=== PATIENT | female | born 1945 | race Caucasian/White ===

== ENCOUNTER 2025-01-13 13:02 | Outpatient (AMB) | payer MEDICARE, OTHER, SELFPAY ==
--- OUTSIDE RECORDS SUMMARY | 2025-01-11 11:00 | XMS_ITS | Encounter Summary ---
Author Organization [facility] Address [address] [place] [address] Care Team Providers Care It Service Manager Name Role Phone Louise Rodriguez MD Primary Care Prov ider Reason for Referral * Medications - Closed Specialty Diagnoses / Procedures Referred By Angie ballard Referred To Contact Diagnoses Pain of left lower extremity Johana Boyer PA [address] [place], [place] Phone: tel: fax: Referral ID Status Reason Start Date Expiration Date Visits Re quested Visits Authorized [id number] Closed 1 1 * Consultation (Routine) - Authorized Specialty Diagnoses / Procedures Referred By Angie ballard Referred To Contact Physical Therapy Diagnoses Pain of left lower extremity Johana Boyer PA [address] [place], [place] Phone: tel: fax: Referral ID Status Reason Start Date Expiration Date Visits Requested Visits Authorized [id number] Authorized Specialty Services Required 01/11/2025 01/11/2026 1 1 Reason for Visit * Reason Comments Leg Pain Encounter Details Date Type Department Care Team ([facility] st Contact Info) Description 01/11/2025 11:00 AM EST Office Visit Adult Medicine - [place] [address] [place] [phone] Johana Boyer PA [address] [place] [address] Pain of left lower extremity (Primary Dx); Hypertension, unspecified type Social History Tobacco Use Types Packs/Day Years Used Date Smoking Tobacco: Former Cigarettes 0 Q uit: 02/09/1979 Smokeless Tobacco: Former Alcohol Use Standard Drinks/Week Comments No 0 (1 standard drink = 0.6 oz pur e alcohol) Housing Instability Answer Date Recorde d Are you worried that in the next 2 months you may not have stable housing? No 11/15/2024 Food Access & Nutrition Answer Date Rec orded Do you have access to a vari ety of food including fruits and vegetables? Yes 11/15/2024 Access to Healthcare Answer Date Record ed Within the last 3 months, ho w many times did you visit the emergency department for your medical care? 0 11/15/2024 Health Literacy Answer Date Recorded How often do you need to hav e someone help you when you read instructions, pamphlets, or other written material from your doctor or pharmacy? Never 11/15/2024 Caregiver: How often do you need to have someone help you when you read instructions, pamphlets, or other written material from your doctor or pharmacy? Not on file 11/15/2024 Financial Risk Answer Date Recorded How hard is it for you to pa y for the very basics like food, housing, medical care, and air conditioning / heating? Not very hard 11/15/2024 Transportation Answer Date Recorded Has the lack of transportati on kept you from meetings, work, or from getting things needed for daily living? Not on file 11/15/2024 Has the lack of transportati on kept you from medical appointments or from getting medications? No 11/15/2024 Social Isolation Answer Date Recorded How often do you feel lonely or isolated from th ose around you? Never 11/15/2024 Food Risk Answer Date Recorded Within the past 12 months we worried whether our food would run out before we got money to buy more. Never true 11/15/2024 Within the past 12 months th e food we bought just didn't last and we didn't have money to get more. Never true 11/15/2024 Dependent Care Answer Date Recorded Do you need help finding or paying for care for your loved ones. For example, child neurologist or elderly care for an older adult? No 11/15/2024 Education Answer Date Recorded Do you think completing more education or training, like finishing a GED, going to college, or learning a trade, would be helpful for you? N/A 11/15/2024 Employment and Income Answer Date Recor ded During the last four weeks, have you been actively looking for work? No 11/15/2024 Living Situation Answer Date Recorded What is your living situation? Unrecognized valu e 11/15/2024 Comments No Sex and Gender Information Value Date Recorded Sex Assigned at Not on file Legal Sex Female 11:02 AM EST Gender Identity Not on file Sexual Orientation Not on file documented as of this encounter Last Filed Vital Signs Vital Sign Reading Time Taken Comments Blood Pressure 162/88 01/11/2025 11:24 AM EST Pulse 70 01/11/2025 11:24 AM EST Temperature - - Respiratory Rate - - Oxygen Saturation 99% 01/11/2025 11:24 AM EST Inhaled Oxygen Concentration - - Weight - - Height - - Body Mass Index - - documented in this encounter Ordered Prescriptions Prescription Sig Dispense Quantity Refills Last Filled Start Date End Date traMADoL (ULTRAM) 50 mg tabletIndications:P ain of left lower extremity Take 1 tablet (50 mg total) by mouth every 8 (eight) hours if needed for severe pain. Max Daily Amount: 150 mg 10 tablet 01/11/2025 documented in this encounter Progress Notes * JAYNE Fernandes - 01/11/2025 11:00 AM EST CHIEF COMPLAINT: Leg Pain IDENTIFIER: Amy Acosta is a 80 y.o. old female. HPI: BP Readings from Last 5 Encounters: 01/11/25 (!) 162/88 11/15/24 130/70 05/13/24 134/80 03/01/24 (!) 150/90 07/23/23 138/80 History of Present Illness The patient is an 80-year-old female presenting with left leg pain. The pain began two days ago, preceded by a cramp in her foot. Initially localized in her groin, it has radiated to her vasquez, causing numbness and impairing her ability to walk. She sought urgent care yesterday, was prescribed naproxen and Tylenol, but found no relief. An x-ray was recommended but not performed. No history of injury or heavy lifting. Applied ThermaCare without relief. History of hypertension, currently elevated likely due to pain. Bp today is 162/88- bp normally controlled on losartan 50mg. ROS: GENERAL: No malaise, significant weight loss or fever MUSCULOSKELETAL: SEE HPI NEURO: SEE HPI PAST MEDICAL HISTORY: Patient Active Problem List Diagnosis Date Noted Binge eating 04/07/2022 Hypertension 02/17/2022 Keratosis, seborrheic 02/22/2018 GERD (gastroesophageal reflux disease) 04/03/2014 Adrenal mass ([facility] V24) 01/26/2014 Knee pain 10/25/2007 SOCIAL HISTORY: Social History Tobacco Use Smoking status: Former Current packs/day: 0.00 Types: Cigarettes Quit date: 02/09/1979 Years since quittin.9 Smokeless tobacco: Former Substance Use Topics Alcohol use: No FAMILY HISTORY: Family Status Relation Name Status Mother 65 No partnership data on file Family History[1] ACTIVE MEDICATIONS: Medications Taking[2] ALLERGIES: Pollen extracts PHYSICAL EXAM: Blood pressure (!) 162/88, pulse 70, SpO2 99%. There is no height or weight on file to calculate BMI. APPEARANCE: Alert and in no acute distress HEART: RRR with normal S1 and S2, no murmurs, appreciated LUNG: clear to auscultation ABDOMEN: Bowel sounds normoactive, no bruits, soft, non-tender, without organomegaly or palpable masses EXTREMITIES: Extremities warm and well perfused without clubbing, cyanosis, or edema BACK/LEFT LEG: lower left back is tender along sciatic area going down the leg NEURO: Awake, alert and oriented x 3 PSYCH: Mood and affect intact IMPRESSION: 1. Pain of left lower extremity 2. Hypertension, unspecified type PLAN: Assessment & Plan 1. Left leg pain: -Possible sciatica with pain radiating from sciatic notch down leg, numbness, tingling. -Naproxen ineffective. - Ordered x-ray of lower back - Referred to physical therapy - Prescribed tramadol for severe pain, advised to take at night or at home. Pt is advised of risk of dependency, risk of sedation, drowsiness, psychomotor impairment and is advised to avoid use of heavy machinery, including driving, while on this medication. The risks and benefits of this medication were discussed with the patient. The patient understands the potential side effects and basic interactions of this medication. The patient is asked to call me or my colleagues if they begin to experience any difficulties with this medication - Referral to physiatry if x-ray shows compression/narrowing 2. Hypertension: Elevated BP likely due to pain. -BP was 130/70 last visit. - No changes to management- continue on losartan. 3. Health maintenance: - reminded to do lab work I have obtained verbal consent from Amy Acosta prior to the recording. I have advised Amy David Dave that she may refuse the recording and require the recording to be turned off at any time during this encounter. Patient agrees with plan. Patient consents to prescribed medication and understands the adverse effect profile. They will contact the office with any concerns. Patient understands the signs and symptoms that require urgent or emergent follow-up, they will contact the office with any concerns. Orders Placed This Encounter Procedures XR Lumbar Spine 4+ Views Ambulatory referral to Physical Therapy and Athletic Training ADDITIONAL ORDERS: AMB REFERRAL TO PHYSICAL THERAPY AND ATHLETIC TRAINING JAYNE Fernandes on 01/11/2025 at 10:47 PM EST [1] Family History Problem Relation Name Age of Onset Breast cancer Mother 65 65.00 Hyperlipidemia Mother 65 Hypertension Mother 65 [2] Outpatient Medications Marked as Taking for the 01/11/25 encounter (Office Visit) with JAYNE Fernandes Medication Sig Dispense Refill fluticasone propionate (FLONASE) 50 mcg/actuation nasal spray TAKE 1 SPRAYS (INTRANASAL) 2 TIMES PER DAY FOR 30 DAYS losartan (COZAAR) 50 mg tablet Take 1 tablet (50 mg total) by mouth 1 (one) time each day. 90 each 1 naproxen (NAPROSYN) 500 mg tablet Take 1 tablet (500 mg total) by mouth 2 (two) times a day with meals. omeprazole (PriLOSEC) [address] capsule Take 1 capsule (10 mg total) by mouth 1 (one) time each day.Do not crush or chew. documented in this encounter Plan of Treatment Upcoming Encounters Date Type Department Care Team (Late st Contact Info) Description 05/16/2025 10:30 AM EDT Office Visit Adult Medicine - [place] [address] [place] [phone] Johana Boyer PA [address] [place] [address] Scheduled Referrals Name Type Priority Associated Diagnoses Order Schedule Ambulatory referral to Physical Therapy and Athletic Training Outpatient Referral Routine Pain of left lower extremity 1 Occurrences starting 01/11/2025 until 01/11/2026 documented as of this encounter Results * XR Lumbar Spine 4+ Views (01/11/2025 12:09 PM EST) Anatomical Region Laterality Modality Spine, L-spine Radiographic Juliet ging 01/11/2025 1:18 PM EST Impressions 01/11/2025 1:21 PM EST 1. Probable chronic compression deformity of L2. 2. Severe degenerative changes of the lumbar spine. -------- FINAL REPORT -------- Dictated By: Daisy Schmitd Dictated Date: 01/11/2025 13:18 ET Assigned Physician: Daisy Schmidt Reviewed and Electronically Signed By: Daisy Schmidt Signed Date: 01/11/2025 13:21 ET Workstation ID: [id number] Transcribed By: Self Edit Transcribed Date: 01/11/2025 13:18 ET Narrative 01/11/2025 1:21 PM EST HISTORY: low back left sided pain going down the leg TECHNIQUE: 4 views of the lumbar spine COMPARISON: None FINDINGS: Decreased vertebral body height of L2, less than 25% height loss at the superior endplate. The remainder the vertebral bodies are grossly intact. Decreased disc height at L1-L2, L2-L3, L3-L4, L5-S1 with endplate sclerosis. Extensive facet arthropathy at the lower lumbar spine. Severe neuroforaminal stenosis at multiple levels. Large amount stool throughout the colon. The sacroiliac joints are unremarkable. Procedure Note Daisy Schmidt MD - 01/11/2025 HISTORY: low back left sided pain going down the leg TECHNIQUE: 4 views of the lumbar spine COMPARISON: None FINDINGS: Decreased vertebral body height of L2, less than 25% height loss at thesuperior endplate. The remainder the vertebral bodies are grossly intact.Decreased disc height at L1-L2, L2-L3, L3-L4, L5-S1 with endplatesclerosis. Extensive facet arthropathy at the lower lumbar spine. Severeneuroforaminal stenosis at multiple levels. Large amount stool throughoutthe colon. The sacroiliac joints are unremarkable. IMPRESSION: 1. Probable chronic compression deformity of L2. 2. Severe degenerative changes of the lumbar spine. -------- FINAL REPORT -------- Dictated By: Daisy Schmidt Dictated Date: 01/11/2025 13:18 ET Assigned Physician: Daisy Schmidt Reviewed and Electronically Signed By: Daisy Schmidt Signed Date: 01/11/2025 13:21 ET Workstation ID: [id number] Transcribed By: Self Edit Transcribed Date: 01/11/2025 13:18 ET us Johana GODOY IMG XR PROCEDURES Final Re sult documented in this encounter Visit Diagnoses Diagnosis Pain of left lower extremity- Primary Hypertension, unspecified type Pain of left lower extremity documented in this encounter Historical Medications * This list may reflect changes made after this encounter. naproxen (NAPROSYN) 500 mg tablet Take 1 tablet (500 mg total) by mouth 2 (two) times a day with meals. 01/10/2025 added in this encounter Additional Health Concerns Assessment Noted Time PHQ-9 Depression Total Score: 0 11/16/19 25 10:23 AM EDT A fall risk assessment has been complete d for the patient 11/15/2024 10:20 AM EDT documented as of this encounter Care Teams It Service Manager Relationship Specialty Start Date End Date Louise Rodriguez MD [address] [place] [id number] PCP - General 01/09/1993 documented as of this encounter
--- OUTSIDE RECORDS SUMMARY | 2025-01-11 11:45 | XMS_ITS | Encounter Summary ---
Author Organization [facility] Address [address] [place] [address] Care Team Providers Care English Instructor Name Role Phone Louise Rodriguez MD Primary Care Prov ider Encounter Details Date Type Department Care Team (Latest Contact Info) Description 01/11/2025 11:45 AM EST - 01/11/2025 11:59 PM [facility] Hospital Encounter Xray - [place] [address] [place] [id number] Pain of left lower extremity Discharge Disposition: Home or Self Care Social History Tobacco Use Types Packs/Day Years [...] for your loved ones. For example, child care sitter or elderly care for an older adult? [...] on file documented as of this encounter Medications at Time of Discharge fluticasone propionate (FLONASE) 50 mcg/actuation nasal spray TAKE 1 SPRAYS (INTRANASAL) 2 TIMES PER DAY FOR 30 DAYS 03/28/2023 losartan (COZAAR) 50 mg tablet Take 1 tablet (50 mg total) by mouth 1 (one) time each day. 90 each 1 11/15/2024 05/14/2025 naproxen (NAPROSYN) 500 mg tablet Take 1 tablet (500 mg total) by mouth 2 (two) times a day with meals. 01/10/2025 naproxen sodium (ANAPROX) 220 mg tablet Take 1 Tablet by mouth 2 times daily (with meals). omeprazole (PriLOSEC) [address] capsule Take 1 capsule (10 mg total) by mouth 1 (one) time each day. Do not crush or chew. traMADoL (ULTRAM) 50 mg tabletIndications :Pain of left lower extremity Take 1 tablet (50 mg total) by mouth every 8 (eight) hours if needed for severe pain. Max Daily Amount: 150 mg 10 tablet 01/11/2025 documented as of this encounter Discharge Disposition Disposition Code Departure Means Destination Home or Self Care documented in this encounter Plan of Treatment Upcoming Encounters Date Type Department Care Team (Late st Contact Info) Description 05/16/2025 10:30 AM EDT Office Visit Adult Medicine [facility] [address] [place] [address] Johana Boyer PA [address] [place] [address] documented as of this encounter Procedures Procedure Name Priority Date/Time Associated Diagnosis Comments XR LUMBAR SPINE 4+ VIEWS Routine 01/11/2025 12:09 PM EST Pain of left lower extremity documented in this encounter Results * XR Lumbar Spine [...] Signed Date: 01/11/2025 13:21 ET Workstation ID: [id number] Transcribed By: Self Edit Transcribed Date: 01/11/2025 [...] Signed Date: 01/11/2025 13:21 ET Workstation ID: [id number] Transcribed By: Self Edit Transcribed Date: 01/11/2025 13:18 ET us Johana GODOY IMG XR PROCEDURES Final Re sult documented in this encounter Visit Diagnoses Diagnosis Pain of left lower extremity documented in this encounter Additional Health Concerns Assessment Noted Time PHQ-9 Depression Total Score: 0 11/16/19 25 10:23 AM EDT A fall risk assessment has been complete d for the patient 11/15/2024 10:20 AM EDT documented as of this encounter Care Teams English Instructor Relationship Specialty Start Date End Date Louise Rodriguez MD [address] [place] [id number] PCP - General 01/09/1993 documented as of this encounter
--- OUTSIDE RECORDS SUMMARY | 2025-01-11 12:20 | XMS_ITS | Encounter Summary ---
Author Organization [facility] Address [address] [place] [address] Care Team Providers Care Plastic Surgeon Name Role Phone Louise Rodriguez MD Primary Care Prov ider Encounter Details Date Type Department Care Team (Late st Contact Info) Description 01/11/2025 12:20 PM EST Lab Draw Station - [facility] [address] [place] [address] Hypertension, unspecified type Social History Tobacco Use [...] ed Within the last 3 months, ho dayana many times did you visit the emergency [...] for your loved ones. For example, child custody evaluator or elderly care for an older adult? [...] on file documented as of this encounter Plan of Treatment Upcoming Encounters Date Type Department Care Team (Late st Contact Info) Description 05/16/2025 10:30 AM EDT Office Visit Adult Medicine [facility] [address] [place] [address] Johana Boyer PA [address] [place] [address] documented as of this encounter Procedures Procedure Name Priority Date/Time Associated Diagnosis Comments COMPREHENSIVE METABOLIC PANEL Routine 01/11/2025 12:19 PM EST Hypertension, unspecified type documented in this encounter Results * (ABNORMAL) Comprehensive metabolic panel (01/11/2025 12:19 PM [facility]) Sodium 134 133 - 145 mmol/L 01/11/2025 2:11 PM [facility] Potassium 4.7 3.5 - 5.5 mmol/L 01/11/2025 2:11 PM [facility] Chloride 99 96 - 110 mmol/L 01/11/2025 2:11 PM [facility] CO2 26 21 - 32 mmol/L 01/11/2025 2:11 PM [facility] Anion Gap 9 3 - 11 01/11/2025 2:11 PM [facility] Glucose 104(H) 70 - 100 mg/dL 01/11/2025 2:11 PM [facility] BUN 17 5 - 25 mg/dL 01/11/2025 2:11 PM [facility] Creatinine 0.92 0.50 - 1.10 mg/dL 01/11/2025 2:11 PM [facility] eGFR 63 >=60 mL/min/1. 73m2 01/11/2025 2:11 PM [facility] Comment:Calculation based on the Chronic Kidney Disease Epidemiology Collaboration (CKD-EPI) equation refit without adjustment for race. BUN/Creatinine Ratio 18.5 01/11/2025 2:11 PM [facility] Calcium 9.9 8.5 - 10.5 mg/dL 01/11/2025 2:11 PM [facility] AST (SGOT) 22 10 - 42 unit/L 01/11/2025 2:11 PM [facility] ALT (SGPT) 27 10 - 60 unit/L 01/11/2025 2:11 PM [facility] Alkaline Phosphatase 96 42 - 121 unit/L 01/11/2025 2:11 PM EST [facility] Total Protein 6.4 6.0 - 8.0 g/dL 01/11/2025 2:11 PM EST [facility] Albumin 4.3 3.2 - 5.0 g/dL 01/11/2025 2:11 PM EST [facility] Total Bilirubin 0.6 0.0 - 1.4 mg/dL 01/11/2025 2:11 PM EST [facility] Blood Venous blood specimen / Unknown Venipuncture / Unknown 01/11/2025 12:19 PM EST 01/11/2025 12:19 PM EST us Johana GODOY LAB BLOOD ORDERABLES Final Result [facility] [address] [place] [address], documented in this encounter Visit Diagnoses Diagnosis Hypertension, unspecified type documented in this encounter Additional Health Concerns Assessment Noted Time PHQ-9 Depression Total Score: 0 11/16/19 25 10:23 AM EDT A fall risk assessment has been complete d for the patient 11/15/2024 10:20 AM EDT documented as of this encounter Care Teams Plastic Surgeon Relationship Specialty Start Date End Date Louise Rodriguez MD [address] [place] [id number] PCP - General 01/09/1993 documented as of this encounter
--- NOTE | 2025-01-13 13:04 | A.PHYSOV_ITS ---
Intake Visit Reasons: NPV- chronic compression deformity of L2 Intake Note: Patient is a 80 year old female here for a new patient office visit. Patient was referred for compression deformity of L2 vertebrae. 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 She reports the onset was on Thursday of this week, initially presenting with what she thought was a normal leg cramp, but the pain persisted and worsened after sleeping. The pain has since become severe, requiring the use of a walker for ambulation, which is new for her. The patient describes the pain as wandering; it initially started down her leg, and this morning was severe in the front of her ankle, but is now worst in her lateral hip area. Prior to this visit, she was seen at an urgent care where arthritis or a pinched nerve was suggested, and subsequently saw a PA who prescribed tramadol and Aleve. She reports these medications are not helping and was told to go to the emergency room if she needed stronger medication. She has a pain level today of 9/10. Her medical history is notable for recurrent leg cramps, for which she takes a non-prescription sublingual medication, and a past meniscus surgery on her knee. She denies any history of diabetes. The patient considers herself an active person but acknowledges being overweight. I reviewed the referring provider's no prior to consultation. Pain Description - Onset: Began acutely a few days ago, possibly Thursday. - Location: The pain is described as wandering; it started down her leg, moved to the front of her ankle, and is now primarily located in her lateral hip. - Quality: Described as an intense, pulling sensation, not like her usual cramps. - Severity: Rated as 8 out of 10 with a walker. - Radiation: The pain radiates down the leg. - Exacerbating Factors: Pain is worse with movement, walking, leaning back, bending forward, sitting, straightening the left leg, and hip abduction. - Relieving Factors: Tramadol and Aleve may dull the pain slightly but do not provide significant relief. - Interference with function: The pain interferes with sleep, requiring her to sleep in a chair, and necessitates the new use of a walker for ambulation. Procedure: Left hip bursal injection 01/13/2025 [facility] Social History Alcohol intake: current Alcohol intake frequency: does not drink Patient Tobacco Use Status: Former Tobacco user Review of Systems Narrative Review of Systems - Constitutional: Reports being overweight and having poor sleep due to pain. - Musculoskeletal: Reports severe, wandering pain in the left hip and leg. Reports a history of recurrent leg cramps. Denies back pain to direct touch, but reports some referred pain in the back this morning. - Neurological: Reports a pulling sensation down her leg and a feeling that her leg is like it's wax again. Denies other focal neurologic symptoms. - Endocrine: Denies a history of diabetes. Physical Exam Exam Exam: Physical Exam Lumbar Spine: Examination of her lumbar spine, there is no visible swelling or deformity. She is tender to lower lumbar facets. She has full range of motion of the lumbar spine with pain. She does have an increase in pain with facet loading. Special Tests: Lhermittes sign was negative Heel Toe walk is normal Left straight leg raise: Negative Right straight leg raise: Negative Special tests Sarah test is negative Ganslen's test is negative SI Joint compression test negative Chapis test negative Piriformis stretch is negative Lower Extremities: Marked limited range of motion of her left hip and external rotation. She is markedly tender over the left greater trochanteric bursa. Neuro: Sensation: Intact to lower extremities bilaterally Strength L2 (Psoas): 5/5 on the left and 5/5 on the right. L3 (Quads): 5/5 on the left and 5/5 on the right. L4 (Ant tibialis): 5/5 on the left and 5/5 on the right. L5 (EHL) 5/5 on the left and 5/5 on the right. S1 (Gastroc): 5/5 on the left and 5/5 on the right. DTR L4: (Patellar) Left 1 Right 1 S1: (Achilles) Left 0 Right 0 Babinski Downgoing No pathologic clonus. No involuntary movement. Office Procedures AMB Hip Injection AMB Hip Injection Procedure Details: Left Greater trochanteric bursal injection: The risks, benefits and complications of the left greater trochanteric bursitis/gluteal tendinopathy were discussed with the patient, including but not limited to infection, increased serum glucose, nerve damage, bleeding and pain. All questions were answered to the patient's satisfaction. Verbal consent was obtained. The patient was eager to proceed. Patient was cleansed with Betadine, ethyl chloride was then used to desensitize the skin. Using an a 25-gauge needle 40 mg of Kenalog and 3 mL 2% lidocaine were injected over the greater trochanter of maximal tenderness. The patient tolerated the procedure well without immediate complication. Postinjection instructions were given. Hip (Bursa) Injection - : Left All charges added?: Procedure code (CPT) selection complete Office Meds Kenalog 40 mg/mL suspension for injection Performing Provider: JAYNE Kc Performing Location[facility] Administered by: JAYNE Kc on 01/13/25 14:06 Dose Route Admin Location Dispensed Lot Number Expiration Date [facility] [employer] 40 mg intrabursal 1 mL [id number] [employer] Total Dispensed Waste 1 mL 0 % lidocaine (PF) 20 mg/mL (2 %) injection solution Performing Provider: JAYNE Kc Performing [facility] Administered by: JAYNE Kc on 01/13/25 14:06 Dose Route Admin Location Dispensed Lot Number Expiration Date [facility] [employer] 60 mg intrabursal 50 mL [id number] Total Dispensed Waste 50 mL 0 % Assessment & Plan Assessment & Plan (1) Osteoarthritis of left hip: Code(s): M16.12 - Unilateral primary osteoarthritis, left hip Category: Medical Qualifiers: Osteoarthritis type: primary Qualified Code(s): M16.12 - Unilateral primary osteoarthritis, left hip Plan Pain Management - Affect: The patient is in significant distress and describes her pain as awful. - Analgesia: Current pain is 8/10. The patient is taking tramadol and Aleve with minimal relief. A corticosteroid injection was administered to the left hip bursa. Prescriptions for a prednisone taper and Percocet for breakthrough pain will be provided. - Adverse Effects: No adverse effects from current medications were reported. - Activities of Daily Living: Pain has significantly impacted her mobility, necessitating a walker for ambulation. It also disrupts sleep, causing her to sleep in a chair. - Aberrant Drug-Related Behaviors: The patient explicitly stated, I'm not a drug addict when accepting a prescription for Percocet. There are no signs of aberrant drug-related behaviors. Plan Patient was informed and verbally consented to the use of an ambient scribe for clinic note documentation during this visit. 1. Left Trochanteric Bursitis The patient exhibits significant tenderness over the left lateral hip, consistent with trochanteric bursitis. To address this component of her pain, a corticosteroid injection was administered into the left greater trochanteric bursa during the visit. 2. Left Lumbar Radiculopathy (Sciatica) severe The patient's radiating leg pain is highly suspicious for lumbar radiculopathy, likely secondary to a disc bulge or spinal arthritis. An MRI of the lumbar spine has been ordered to evaluate for a pinched nerve, which is the most likely etiology of the radiating pain. Her pain is severe and I recommend the MRI at this time. Concurrently, an X-ray of the hip has been ordered to rule out underlying joint pathology as a contributing factor. 3. Acute Pain Management The patient's pain is severe and inadequately controlled with tramadol and naproxen. A prednisone taper will be prescribed to reduce systemic inflammation. Additionally, a short course of Percocet will be prescribed for breakthrough pain. Discussion Notes I discussed with the patient that her symptoms are likely from a combination of bursitis in her hip and a pinched nerve in her back, also known as sciatica. I e xplained that while the bursitis is causing her localized hip pain, the pain radiating down her leg is more likely coming from her back. I obtained informed consent for a corticosteroid injection into her left hip bursa after discussing the risks, including infection, bleeding, and nerve damage, and the benefits of potential pain relief. I managed her expectations by explaining that the shot would likely help some, but not all, of her pain, as we still need to address the nerve issue. We discussed the plan for further evaluation, which includes an X-ray of her hip and an MRI of her lumbar spine. I explained that the MRI requires insurance authorization, which my office will handle, and that she can get the X-ray as a walk-in at her convenience. We also discussed the medication plan, including a new prescription for a prednisone taper to reduce inflammation and Percocet for severe, breakthrough pain. Patient Instructions - You will be given a prescription for a prednisone taper, which is a steroid to help decrease inflammation and pain. - You will also receive a prescription for Percocet to take for severe pain as needed. - Please go for an X-ray of your hip. You can do this as a walk-in at either [facility] or the [facility] in [place] ([address] [place] [address]). - The injection you received in your hip today was a steroid shot to help with the inflammation. It may take a few days to feel the full effect. - Our office has ordered an MRI of your lower back. The MRI department at [facility] will call you to schedule this appointment after they get approval from your insurance. Orders: Orders MR lumbar spine wo con Today M51.16 - Intervertebral disc disorders with radiculopathy, lumbar region AMB Hip/Bursa Injection Today M16.12 - Unilateral primary osteoarthritis, left hip, M54.16 - Radiculopathy, lumbar region XR hip LT min 2V Today M16.10 - Unilateral primary osteoarthritis, unspecified hip Medications: New oxycodone-acetaminophen 5-325 mg (Percocet) Partial Fill upon patient request. 1 tab PO Q4H PRN 28 tabs 0RF pain M16.12 - Unilateral primary osteoarthritis, left hip, M54.16 - Radiculopathy, lumbar region prednisone 3 tabs po for 3 days, 2 tabs po for 3 days, 1 tab po for 3 days 20 mg PO DAILY 18 tabs 0RF 9 days M16.12 - Unilateral primary osteoarthritis, left hip, M54.16 - Radiculopathy, lumbar region Coding Level of Care Code Tele New Pt Level 5 (28044) Diagnoses Primary osteoarthritis of left hip M16.12 Osteoarthritis type: primary CPT Codes AMB Hip Injection - Hip/Bursa Injection - 79203: Left ([id number]) Time Spent (min) 60 Comment 60 minutes reviewing the medical record and imaging, seeing the patient and documenting.
--- OUTSIDE RECORDS SUMMARY | 2025-01-13 16:59 | XMS_ITS | Clinical Summary ---
Author Organization [facility] [address] [facility] Address [address] [place] [address] Phone Care Team Providers Care Rehab Specialist Name Role Phone Louise Rodriguez MD Primary Care Prov ider Allergies Active Allergy Reactions Criticality Noted Date Comments Pollen Extracts 07/23/2023 Medications naproxen sodium (ANAPROX) 220 mg tablet Take 1 Tablet by mouth 2 times daily (with meals). Active fluticasone propionate (FLONASE) 50 mcg/actuation nasal spray TAKE 1 SPRAYS (INTRANASAL) 2 TIMES PER DAY FOR 30 DAYS 03/28/2023 Active omeprazole (PriLOSEC) [address] capsule Take 1 capsule (10 mg total) by mouth 1 (one) time each day. Do not crush or chew. Active losartan (COZAAR) 50 mg tablet Take 1 tablet (50 mg total) by mouth 1 (one) time each day. 90 each 1 11/15/2024 Active naproxen (NAPROSYN) 500 mg tablet Take 1 tablet (500 mg total) by mouth 2 (two) times a day with meals. 01/10/2025 Active traMADoL (ULTRAM) 50 mg tabletIndicatio ns:Pain of left lower extremity Take 1 tablet (50 mg total) by mouth every 8 (eight) hours if needed for severe pain. Max Daily Amount: 150 mg 10 tablet 01/11/2025 Active Active Problems Problem Noted Date Diagnosed Date Binge eating 04/07/2022 Hypertension 02/17/2022 Assessment & Plan (11/15/2024 1:53 PM EDT): Orders: Comprehensive metabolic panel; Future Keratosis, seborrheic 02/22/2018 GERD (gastroesophageal reflux disease) 5 Assessment & Plan (11/15/2024 1:53 PM EDT): Adrenal mass (CMS/HCC V24) 01/26/2014 Knee pain 10/25/2007 Overview (12/20/2023): Left with need for meniscal surgery Encounters Date Type Department Care Team Description 01/12/2025 Results Follow-Up Adult Medicine - [facility] [place] [address] Johana Boyer PA 01/12/2025 Telephone Adult Medicine - [place] [address] [facility] [place] [address] Louise Barton MD 01/11/2025 12:20 PM EST Lab Draw Station - [place] [facility] [place] [address] Hypertension, unspecified type 01/11/2025 11:45 AM EST - 01/11/2025 11:59 PM EST Hospital Encounter Xr - [place] [facility] [place] [place] [address] Pain of left lower extremity Discharge Disposition: Home or Self Care 01/11/2025 11:00 AM EST Office Visit Adult [facility] [place] [facility] [place] [address] Johana Boyer PA Pain of left lower extremity (Primary Dx); Hypertension, unspecified type 01/11/2025 Results Follow-Up Adult Medicine - [facility] [address] [facility] [place] [address] Johana Boyer PA 01/11/2025 Telephone Adult Medicine - [place] [address] [facility] [place] [address] Louise Barton MD 01/11/2025 Telephone Adult Medicine - [place] [address] [facility] [place] [address] Johana Boyer PA 11/15/2024 10:00 AM EDT Office Visit Adult Medicine - [address] [address] Johana Boyer PA Medicare annual wellness visit, subsequent (Primary Dx); Hypertension, unspecified type; Gastroesophageal reflux disease, unspecified whether esophagitis present; Encounter for immunization 11/01/2024 7:57 AM EDT - 11/01/2024 11:59 PM EDT Hospital Encounter Radiology Department - [address] [address] Encounter for screening mammogram for breast cancer Discharge Disposition: Home or Self Care from Last 3 Months Immunizations Immunization Administration Dates Next Due Influenza Quadravalent, 0.5m l (Fluad) 65yo and older 12/26/2022,11/30/2020 Influenza Quadravalent, 0.5m l (Fluzone High-dose) 65yo and older 11/29/2021 Influenza trivalent, 0.5mL ( Fluad) 65yo and older 11/15/2024,11/19/2018,10/19/2017,2014 Influenza trivalent, 0.5mL ( Fluzone High-dose) 65yo and older 12/14/2023,11/19/2018,10/19/2017,2016,12/07/2015,10/26/2014 Influenza trivalent, 0.5mL, preservative free (Fluarix; FluLaval; Fluzone) ages 6mo and older (Afluria) 3 years and older 10/04/2019,11/29/2013,11/02/2012 Influenza trivalent, with preservative (Fluzone; Afluria) 6mo and older 11/29/2013,11/02/2012 Influenza, Unspecified 12/07/2016 Pfizer (ages 12 & older) KAY S-CoV-2 COVID-19, mRNA, LNP-S, fabrice-sucrose, preservative free 05/23/2021 Pfizer SARS-CoV-2 COVID-19, mRNA, LNP-S, preservative free 05/23/2021 Pneumococcal conjugate 13 va lent (Prevnar 13, PCV13) 2mo and older 09/30/2016 Pneumococcal conjugate 20 va lent (Prevnar 20, PCV 20) 2mo and older 11/15/2024 Tdap Tetanus diptheria acell ular pertussis (Boostrix; Adacel) 7yo and older 03/01/2024,10/25/2007 Surgical History Surgery Date Site/Laterality Comments TONSILLECTOMY PROCEDURE: HISTORICAL TONSILLECTOMY SALPINGOOPHORECTOMY PROCEDURE: NM LAPAROSCOPY W/RMVL ADNEXAL STRUCTURES; COMMENT: 01/11 BSO ( Dr. Contreras) serous cystadenoma COLONOSCOPY 02/17/2008 PROCEDURE: HISTORICAL COLONOSCOPY; COMMENT: Normal UPPER GASTROINTESTINAL ENDOSCOPY 06/26/2014 PROCEDURE: NM UPPER GI ENDOSCOPY PERFORMED; COMMENT: Normal COLONOSCOPY 07/28/2018 PROCEDURE: HISTORICAL COLONOSCOPY; COMMENT: negative screening exam. Medical History Medical History Date Comments Knee pain 10/25/2007 DX:Knee pain; CO MMENT: Left with need for meniscal surgery Special screening for malign ant neoplasms, colon 02/17/2008 DX:Special screening for mal ignant neoplasms, colon; COMMENT: Negative colonoscopy 02/17/2008, no colon cancer screening needed for 10 years. Family History Medical History Relation Name Comments Breast cancer Mother 65 Hyperlipidemia Mother 65 Hypertension Mother 65 Relation Name Status Comments Mother 65 Social History Tobacco Use Types Packs/Day Years Used Date Smoking Tobacco: Former Cigarettes 0 Q uit: 02/09/1979 Smokeless Tobacco: Former Tobacco Cessation:Counseling Given: No Alcohol Use Standard Drinks/Week Comments No 0 [...] care for your loved ones. For example, children's institution attendant or elderly care for an older adult? [...] on file Sexual Orientation Not on file Obstetrics History Para Term AB IAB SAB Ectopic Multiple Livin g Live Births 0 0 0 Last Filed Vital Signs Vital Sign Reading Time Taken Comments Blood Pressure 162/88 01/11/2025 11:24 AM EST Pulse 70 01/11/2025 11:24 AM EST Temperature 36.7 C (98 F) 05/13/2024 10:03 AM EDT Respiratory Rate 18 11/15/2024 10:00 AM EDT Oxygen Saturation 99% 01/11/2025 11:24 AM EST Inhaled Oxygen Concentration - - Weight 90.7 kg (200 lb) 11/15/2024 10:00 AM EDT Height 165.1 cm (5' 5 ) 11/15/2024 10:00 AM EDT Body Mass Index 33.28 11/15/2024 10:00 AM EDT Plan of Treatment Upcoming Encounters Date Type Department Care Team (Late st Contact Info) Description 05/16/2025 10:30 AM EDT Office Visit Adult Medicine [facility] [address] [place] [address] Johana Boyer PA [address] [place] [address] Health Maintenance Due Date Last Done Comments Zoster Vaccines (1 of 2) 01/06/1964 RSV Immunization Adult Patients (1 - 1-dose 75+ series) 01/06/2020 Osteoporosis Screening (Bone Density Screening) 01/18/2022 COVID-19 Vaccine ( season) 2024 12/14/2023, 12/26/2022, 11/29/2021, Additional history exists Falls Risk Assessment 11/15/2025 11/15/2024, 024 Medicare Annual Wellness Visit 11/15/2025 11/15/2024 Social Influencers of Health Screening 11/15/2025 11/15/2024 Hypertension/CHF/CAD Annual BMP Blood Test 01/11/2026 01/11/2025, 03/03/2024, 07/23/2023, Additional history exists Cholesterol Screening (Lipid Panel) 02/17/2027 02/17/2022 DTaP,Tdap,and Td Vaccines (3 - Td or Tdap) 03/01/2034 03/01/2024, 10/25/2007 Depression Screening Completed 11/15/2024, 07/23/19 24 Influenza Vaccine Completed 11/15/2024, , 12/26/2022, Additional history exists Pneumococcal Vaccine: 50+ Years Completed 11/15/2024, 09/30/2016 HIB Vaccines Aged Out No longer eligi ble based on patient's age to complete this topic HPV Vaccines Aged Out No longer eligi ble based on patient's age to complete this topic Hepatitis A Vaccines Aged Out No long er eligible based on patient's age to complete this topic Hepatitis B Vaccines Aged Out No long er eligible based on patient's age to complete this topic IPV Vaccines Aged Out No longer eligi ble based on patient's age to complete this topic MMR Vaccines Aged Out No longer eligi ble based on patient's age to complete this topic Meningococcal ACWY Vaccine Aged Out N o longer eligible based on patient's age to complete this topic Meningococcal B Vaccine Aged Out No l onger eligible based on patient's age to complete this topic RSV Immunization Patients Under 20 months Aged Out No longer eligible based on patient's age to complete this topic Varicella Vaccines Aged Out No longer eligible based on patient's age to complete this topic Procedures Procedure Name Priority Date/Time Associated Diagnosis Comments COMPREHENSIVE METABOLIC PANEL Routine 01/11/2025 12:19 PM EST Hypertension, unspecified type XR LUMBAR SPINE 4+ VIEWS Routine 01/11/2025 12:09 PM EST Pain of left lower extremity MG MAMMO DIGITAL SCREENING W YASH BILAT Routine 11/01/2024 8:13 AM EDT Encounter for screening mammogram for breast cancer DEPRESSION SCREENING Routine 07/23/2023 FALLS RISK ASSESSMENT Routine 07/23/2023 LIPID PANEL Routine 02/17/2022 from Last 3 Months or Most Recently Relevant to Health Maintenance Results * (ABNORMAL) Comprehensive metabolic panel (01/11/2025 12:19 PM EST) Sodium 134 133 - 145 mmol/L 01/11/2025 2:11 PM EST [facility] Potassium 4.7 3.5 - 5.5 mmol/L 01/11/2025 2:11 PM EST [facility] Chloride 99 96 - 110 mmol/L 01/11/2025 2:11 PM EST [facility] CO2 26 21 - 32 mmol/L 01/11/2025 2:11 PM [facility] Anion Gap 9 3 - 11 01/11/2025 2:11 PM [facility] Glucose 104(H) 70 - 100 mg/dL 01/11/2025 2:11 PM [facility] BUN 17 5 - 25 mg/dL 01/11/2025 2:11 PM [facility] Creatinine 0.92 0.50 - 1.10 mg/dL 01/11/2025 2:11 PM [facility] eGFR 63 >=60 mL/min/1. 73m2 01/11/2025 2:11 PM [facility] Comment:Calculation based on the Chronic Kidney Disease Epidemiology Collaboration (CKD-EPI) equation refit without adjustment for race. BUN/Creatinine Ratio 18.5 01/11/2025 2:11 PM [facility] Calcium 9.9 8.5 - 10.5 mg/dL 01/11/2025 2:11 PM [facility] AST (SGOT) 22 10 - 42 unit/L 01/11/2025 2:11 PM [facility] ALT (SGPT) 27 10 - 60 unit/L 01/11/2025 2:11 PM [facility] Alkaline Phosphatase 96 42 - 121 unit/L 01/11/2025 2:11 PM [facility] Total Protein 6.4 6.0 - 8.0 g/dL 01/11/2025 2:11 PM [facility] Albumin 4.3 3.2 - 5.0 g/dL 01/11/2025 2:11 PM [facility] Total Bilirubin 0.6 0.0 - 1.4 mg/dL 01/11/2025 2:11 PM [facility] Blood Venous blood specimen / Unknown Venipuncture / Unknown 01/11/2025 12:19 PM EST 01/11/2025 12:19 PM EST us Johana GODOY LAB BLOOD ORDERABLES Final Result [facility] [address] [place] [address], [place] [phone] * XR Lumbar Spine 4+ Views (01/11/2025 [...] Signed Date: 01/11/2025 13:21 ET Workstation ID: [id number] Transcribed By: Self Edit Transcribed Date: 01/11/2025 [...] Signed Date: 01/11/2025 13:21 ET Workstation ID: [id number] Transcribed By: Self Edit Transcribed Date: 01/11/2025 13:18 ET us Johana Boyer PA IMG XR PROCEDURES Final Re sult * MG Mammo Digital Screening w Yash bilat (11/01/2024 8:13 AM EDT) Anatomical Region Laterality Modality Breast Bilateral Mammography 11/02/2024 4:44 PM EDT Impressions 11/02/2024 4:48 PM EDT 1. No mammographic evidence of malignancy 2. Scattered fibroglandular tissue BI-RADS CATEGORY: 2 - BENIGN RECOMMENDATION: Screening bilateral mammogram is recommended in 1 year. Mammo Location: [facility], [address] [place] [address], [address], . -------- FINAL REPORT -------- Dictated By: Daisy Schmidt Dictated Date: 11/02/2024 16:44 ET Assigned Physician: Daisy Schmidt Reviewed and Electronically Signed By: Daisy Schmidt Signed Date: 11/02/2024 16:48 ET Workstation ID: [id number] Transcribed By: Self Edit Transcribed Date: 11/02/2024 16:44 ET Narrative 11/02/2024 4:48 PM EDT A BILATERAL DIGITAL 3D SCREENING MAMMOGRAPHY HISTORY: Routine screening. Family history of breast cancer in mother. COMPARISON: Multiple priors dating back to 10/05/2020 Technique: Bilateral full field digital mammography (3D) was performed using standard CC and MLO projections CAD was used to evaluate this mammogram. FINDINGS: Right: No suspicious masses, groups of microcalcification or areas of architectural distortion identified. Stable typically benign parenchymal asymmetries. Left: No suspicious masses, groups of microcalcification or areas of architectural distortion identified. Stable typically benign parenchymal asymmetries. BREAST DENSITY: B - There are scattered areas of fibroglandular density. Procedure Note Daisy Schmidt MD - 11/02/2024 A BILATERAL DIGITAL 3D SCREENING MAMMOGRAPHY HISTORY: Routine screening. Family history of breast cancer in mother. COMPARISON: Multiple priors dating back to 10/05/2020 Technique: Bilateral full field digital mammography (3D) was performedusing standard CC and MLO projections CAD was used to evaluate this mammogram. FINDINGS: Right: No suspicious masses, groups of microcalcification or areas ofarchitectural distortion identified. Stable typically benign parenchymalasymmetries. Left: No suspicious masses, groups of microcalcification or areas ofarchitectural distortion identified. Stable typically benign parenchymalasymmetries. BREAST DENSITY: B - There are scattered areas of fibroglandular density. IMPRESSION: 1. No mammographic evidence of malignancy 2. Scattered fibroglandular tissue BI-RADS CATEGORY: 2 - BENIGN RECOMMENDATION: Screening bilateral mammogram is recommended in 1 year. Mammo Location: [facility], [address] [place] [address], [address], . -------- FINAL REPORT -------- Dictated By: Daisy Schmidt Dictated Date: 11/02/2024 16:44 ET Assigned Physician: Daisy Schmidt Reviewed and Electronically Signed By: Daisy Schmidt Signed Date: 11/02/2024 16:48 ET Workstation ID: [id number] Transcribed By: Self Edit Transcribed Date: 11/02/2024 16:44 ET us Louise Rodriguez MD IMG BI PROCEDURES Final Result * Falls Risk Assessment (07/23/2023) Falls Risk Assessment ABSTRACTED us Historical Provider HEALTH MAINTENANCE Final Result * Depression Screening (07/23/2023) HM Depression Screening ABSTRACTED us Historical Provider HEALTH MAINTENANCE Final Result * (ABNORMAL) Lipid panel (02/17/2022) LDL/HDL Ratio 3 0 - 4 Triglycerides 97 0 - 150 mg/dL Cholesterol 208(A) 0 - 200 mg/dL HDL 67 >=40 mg/dL LDL Cholesterol 122(A) 0 - 100 mg/dL Blood Venous blood specimen / Unknown Historical Provider LAB BLOOD ORDERABLES Elsa l Result from Last 3 Months or Most Recently Relevant to Health Maintenance Insurance MEDICARE [facility] Care Teams Rehab Specialist Relationship Specialty Start Date End Date Louise Rodriguez MD [address] [place] [id number] PCP - General 01/09/1993
--- OUTSIDE RECORDS SUMMARY | 2025-01-13 16:59 | XMS_ITS | Encounter Summary ---
Author Organization [facility] Address [address] [place] [address] Care Team Providers Care System Development Manager Name Role Phone Louise Rodriguez MD Primary Care Prov ider Encounter Details Date Type Department Care Team ([facility] Contact Info) Description 01/12/2025 Results Follow-Up Adult Medicine [facility] [address] [place] [address] Johana Boyer PA [address] [place] [address] Social History Tobacco Use Types Packs/Day Years [...] for your loved ones. For example, child development specialist or elderly care for an older adult? [...] AM EDT Office Visit Adult Medicine - [place] [address] [place] [address] Johana Boyer PA [address] [place] [address] documented as of this encounter Visit Diagnoses Not on filedocumented in this encounter Additional Health Concerns Assessment Noted Time PHQ-9 Depression Total Score: 0 11/16/19 25 10:23 AM EDT A fall risk assessment has been complete d for the patient 11/15/2024 10:20 AM EDT documented as of this encounter Care Teams System Development Manager Relationship Specialty Start Date End Date Louise Rodriguez MD [address] [place] [phone] PCP - General 01/09/1993 documented as of this encounter
--- OUTSIDE RECORDS SUMMARY | 2025-01-13 16:59 | XMS_ITS | Encounter Summary ---
Author Organization [facility] Address [address] [place] [address] Care Team Providers Care Business Analysis Consultant Name Role Phone Louise Rodriguez MD Primary Care Prov ider Reason for Visit * Reason Onset Date Comments Leg Pain 01/11/2025 Encounter Details Date Type Department Care Team ([facility] st Contact Info) Description 01/11/2025 Telephone Adult Medicine [facility] [address] [place] [phone] Johana Boyer PA [address] [place] [address] Social History Tobacco Use Types Packs/Day Years [...] on file documented as of this encounter Progress Notes * Rashaun Chavez RN - 01/11/2025 9:35 AM EST Appointment scheduled for evaluation of leg pain * Christie Cheek - 01/11/2025 9:22 AM EST Patient call requires triage: Symptoms patient is presenting: left thigh pain since Thursday, top and outside parts, constant pain,went to [facility] yesterday and they thought it was a pinched nerve and wanted her to go back today for an Xray. Gave her Aleve 500mg 2xday, and Tylenol 1000mg 1xday. She called ambulance yesterday but they told her BS was too busy so she stayed home. Pain 9.5 to 10/10. Trouble walking. No injury. Had a blood clot many years ago when she was young, not on blood thinners. Can also call her Cell phone: [phone] How long has patient had these symptoms?: Thursday For ALL patients calling to schedule any appointment (routine, sick visit, follow up, consult, etc.) in the outpatient setting please ask the following questions: Do you have fever of higher than 101, sore throat with difficulty swallowing or severe shortness ofbreath? no If YES to any of these above symptoms, send a message to triage and do not book. Red dot. If no, an audio or video visit should be booked. Have you had close contact with someone with Coronavirus in the last 14 days? no Have you traveled abroad? no Have you traveled recently to another state outside of [place], [place], [place], [place], [place], [place], [place]? no o If yes, did you quarantine for 14 days or have a negative covid test? no If yes to any of the above, patient is not to be scheduled in office until after 14 day quarantine or negative covid test. If pain or injury related was it due to an accident at work or from a motor vehicle accident? If yes, date of accident/Injury: No If yes, gather 3rd republican insurance information [employer] Party Information: not applicable PCP: Louise Rodriguez MD Payor: MEDICARE / Plan: MEDICARE PART A & B / Product Type: Medicare / documented in this encounter Plan of Treatment Upcoming Encounters Date Type Department Care Team (Late st Contact Info) Description 05/16/2025 10:30 AM EDT Office Visit Adult Medicine - [place] [address] [place] [address] Johana Boyer PA [address] [place] [address] documented as of this encounter Visit Diagnoses Not on filedocumented in this encounter Additional Health Concerns Assessment Noted Time PHQ-9 Depression Total Score: 0 11/16/19 25 10:23 AM EDT A fall risk assessment has been complete d for the patient 11/15/2024 10:20 AM EDT documented as of this encounter Care Teams Business Analysis Consultant Relationship Specialty Start Date End Date Louise Rodriguez MD [address] [place] [address] PCP - General 01/09/1993 documented as of this encounter
--- OUTSIDE RECORDS SUMMARY | 2025-01-13 16:59 | XMS_ITS | Encounter Summary ---
Author Organization [facility] Address [address] [place] [address] Care Team Providers Care Oracle Brm Developer Name Role Phone Louise Rodriguez MD Primary Care Prov ider Reason for Visit * Reason Onset Date Comments Appointment 01/11/2025 Encounter Details Date Type Department Care Team ([facility] Contact Info) Description 01/11/2025 Telephone Adult Medicine [facility] [address] [place] [address] Louise Rodriguez MD [address] [place] [address] Social History Tobacco Use Types Packs/Day Years [...] care for your loved ones. For example, director child abuse therapy or elderly care for an older adult? [...] Notes * Rashaun Chavez RN - 01/11/2025 10:00 AM EST Appointment scheduled * Jazmine Gurrola - 01/11/2025 9:46 AM EST Patient calling stating that she could get a ride for today. Her niece is able to pick her up. Can you put her in today? She said she was offered a 10:00 appt for today. But it's probably too late for that one. Please call patient back at: [phone] documented in this encounter Plan of Treatment Upcoming Encounters Date Type Department Care Team ([facility] st Contact Info) Description 05/16/2025 10:30 AM EDT Office Visit Adult Medicine - [place] [address] [place] [address] Johana Boyer PA [address] [place] [address] documented as of this encounter Visit Diagnoses Not on filedocumented in this encounter Additional Health Concerns Assessment Noted Time PHQ-9 Depression Total Score: 0 11/16/19 25 10:23 AM EDT A fall risk assessment has been complete d for the patient 11/15/2024 10:20 AM EDT documented as of this encounter Care Teams Oracle Brm Developer Relationship Specialty Start Date End Date Louise Rodriguez MD [address] [place] [address] PCP - General 01/09/1993 documented as of this encounter
--- OUTSIDE RECORDS SUMMARY | 2025-01-13 16:59 | XMS_ITS | Encounter Summary ---
Author Organization [facility] Address [address] [place] [address] Care Team Providers Care Therapeutic Recreation Assistant Name Role Phone Louise Rodriguez MD Primary Care Prov ider Reason for Referral * Consultation (Urgent) - Closed Specialty Diagnoses / Procedures Referred By Contact Referred To Contact Physical Medicine and Rehabilitation Diagnoses Degeneration of intervertebral disc of lumbar region with lower extremity pain Johana Boyer PA [address], [place] Phone: tel:[phone] fax:[phone] Castro DoyleDO [address] [address] Phone: tel:[phone] fax:[phone] Referral ID Status Reason Start Date Expiration Date V isits Requested Visits Authorized [id number] Closed Specialty Services Required 01/11/2025 01/11/2026 1 1 Encounter Details Date Type Department Care Team (Late st Contact Info) Description 01/11/2025 Results Follow-Up Adult Medicine - [place] [address] [place] [id number] Johana Boyer PA [address], [place] Social History Tobacco Use Types Packs/Day Years [...] your loved ones. For example, child care attendant school or elderly care for an older adult? [...] as of this encounter Progress Notes * Kerri Woods MA - 01/12/2025 11:30 AM EST Attempted to call pt. No answer. Left VM to call office * JAYNE Fernandes - 01/11/2025 10:07 PM EST Please call patient and advise xray of lumbar spine showed probable chronic compression deformity of L2 as well as severe degenerative changes as well as narrowing noted at multiple sites. I have referred patient to physiatry- family physiatry with dr. Doyle Please advise patient to have her niece check with referrals and then call physiatry office for appt. I have put in the referral as urgent. [phone]- that's the number documented in this encounter Plan of Treatment Upcoming Encounters Date Type Department Care Team (Late st Contact Info) Description 05/16/2025 10:30 AM EDT Office Visit Adult Medicine - [place] [address] [place] [phone] Johana Boyer PA [address] [place] [address] Scheduled Referrals Name Type Priority Associated Diagnoses Orde r Schedule Ambulatory referral to Physical Medicine Rehab Outpatient Referral Routine Degeneration of intervertebral disc of lumbar region with lower extremity pain 1 Occurrences starting 01/11/2025 until 01/11/2026 documented as of this encounter Visit Diagnoses Diagnosis Degeneration of intervertebral disc of lumbar region with lower extremity pain- Primary documented in this encounter Additional Health Concerns Assessment Noted Time PHQ-9 Depression Total Score: 0 11/16/19 25 10:23 AM EDT A fall risk assessment has been complete d for the patient 11/15/2024 10:20 AM EDT documented as of this encounter Care Teams Therapeutic Recreation Assistant Relationship Specialty Start Date End Date Louise Rodriguez MD [address] [place] [id number] PCP - General 01/09/1993 documented as of this encounter
--- OUTSIDE RECORDS SUMMARY | 2025-01-13 16:59 | XMS_ITS | Encounter Summary ---
Author Organization [facility] Address [address] [place] [address] Care Team Providers Care [employer] Room Service Supervisor Name Role Phone Louise Rodriguez MD Primary Care Prov ider Reason for Visit * Reason Onset Date Comments Leg Pain 01/12/2025 Encounter Details Date Type Department Care Team ([facility] st Contact Info) Description 01/12/2025 Telephone Adult Medicine [facility] [address] [place] [id number] Louise Rodriguez MD [address] [place] [address] Social History Tobacco Use Types Packs/Day Years [...] for your loved ones. 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 [...] Progress Notes * Rashaun Chavez RN - 01/12/2025 10:02 AM EST Pt advised of provider message I had gone over results earlier with pt * JAYNE Fernandes - 01/12/2025 9:53 AM EST If the pain is that bad she should go to the ER. Tramadol is a strong medication. Please make sure she is aware of the xray findings Please call patient and advise xray of [...] have put in the referral as urgent. [phone]- that's the number * Rashaun Chavez RN - 01/12/2025 9:20 AM EST Pt states that the tramadol is not helping at all , pt is unable to sleep and is barely getting around , pt is goingf to call for an appointment with physiatry but is asking for a stronger med until she can be seen , pt states that she cannot sit in this much pain * Alireza Son - 01/12/2025 8:44 AM EST Patient call requires triage: Symptoms patient is presenting: Pt c/o severe pain in the left leg. Pt was given tramadol yesterdaybut states it is not helping the pain. How long has patient had these symptoms?: For ALL patients calling to schedule any appointment (routine, sick visit, follow up, consult, etc.) in the outpatient setting please ask the following questions: Do you have fever of higher than 101, sore throat with difficulty swallowing or severe shortness ofbreath? If YES to any of these above symptoms, send a message to triage and do not book. Red dot. If no, an audio or video visit should be booked. Have you had close contact with someone with Coronavirus in the last 14 days? Have you traveled abroad? Have you traveled recently to another state outside of [place], [place], [place], [place], [place], [place], [place]? o If yes, did you quarantine for 14 days or have a negative covid test? If yes to any of the above, patient is not to be scheduled in office until after 14 day quarantine or negative covid test. If pain or injury related was it due to an accident at work or from a motor vehicle accident? If yes, date of accident/Injury: If yes, gather 3rd democrat insurance information Third Democrat Information: PCP: Louise Rodriguez MD Payor: MEDICARE / Plan: MEDICARE PART A & B / Product Type: Medicare / documented in this encounter Plan of Treatment Upcoming Encounters Date Type Department Care Team (Late st Contact Info) Description 05/16/2025 10:30 AM EDT Office Visit Adult Medicine - [place] [address] [place] [address] Johana Boyer PA [address] [place] [address] documented as of this encounter Visit Diagnoses Not on filedocumented in this encounter Additional Health Concerns Assessment Noted Time PHQ-9 Depression Total Score: 0 11/16/19 25 10:23 AM EDT A fall risk assessment has been complete d for the patient 11/15/2024 10:20 AM EDT documented as of this encounter Care Teams Hotel [employer] Mot[employer] Room Service Supervisor Relationship Specialty Start Date End Date Louise Rodriguez MD [address] [place] [address] PCP - General 01/09/1993 documented as of this encounter
== END 2025-01-13 13:57 | disposition home or self-care (01) ==
LOC: HO.HPHYS 13:02
PROVIDERS: PCP Internal Medicine; Visit Provider Physician Assistant
DX: M16.12 Unilateral primary osteoarthritis, left hip (principal); M54.16 Radiculopathy, lumbar region
CPT/HCPCS: 20610; 99205

== ENCOUNTER → 2025-01-13 13:02 | Outpatient (BNVA) | payer MEDICARE, OTHER, SELFPAY | PROVIDERS: PCP Internal Medicine; Visit Provider Physician Assistant | DX: M16.12 Unilateral primary osteoarthritis, left hip (principal) | CPT/HCPCS: 20610; 99202; J2003; J3301 ==